=== PATIENT | male | born 1975 | race Caucasian/White ===

== ENCOUNTER → 2021-12-26 | Outpatient (CLI) | payer OTHER ==
--- NOTE | 2021-12-26 09:01 | US ---
EXAMINATION TYPE: US abdomen complete DATE OF EXAM: 12/26/2021 COMPARISON: NONE CLINICAL HISTORY: R12 HEARTBURN. Pt states bloating, acid reflux EXAM MEASUREMENTS: Liver Length: 20.7 cm Gallbladder Wall: 0.3 cm CBD: 0.5 cm Spleen: 11.7 cm Right Kidney: 10.8 x 4.3 x 5.0 cm Left Kidney: 12.3 x 5.1 x 5.2 cm Pancreas: wnl, tail obscured by overlying bowel gas Liver: Enlarged, heterogeneous, probable fatty sparing near GB and michael Gallbladder: wnl Evidence for sonographic Degroot's sign: No CBD: wnl Spleen: wnl Right Kidney: wnl, lower pole gassed out Left Kidney: wnl, lower pole gassed out Upper IVC: wnl Abd Aorta: wnl The intrahepatic portion of the IVC and proximal abdominal aorta are within normal limits. There is no evidence of cholelithiasis. Common bile duct is unremarkable. The visualized portions of the reynolds creas are homogenous. The spleen is unremarkable. Kidneys are symmetric and free of hydronephrosis. No renal lesions are seen. IMPRESSION: Attic steatosis with probable underlying focal fatty sparing.
== END | disposition home or self-care (01) ==
LOC: RADUSWWP 08:17
PROVIDERS: ATTEND Registered Nurse
DX: K76.0 Fatty (change of) liver, not elsewhere classified (principal)
CPT/HCPCS: 76700